=== PATIENT | male | born 1935 | race Caucasian/White ===

== ENCOUNTER → 2017-06-15 | Outpatient (CLI) | payer BC ==
[~2017-06-15] MED LIST: ASPI-435 PO; BRIM0.15 OPB; CHOLTAB3 PO; COEN150C PO; DORZ1SOL6 OPB; FINA5TAB PO; LATA0.009 OPB; MONT1TAB5 PO; ROSU5TAB PO; TAMS0.4C38 PO
--- NOTE | 2017-06-15 09:04 | DIAGNOSTIC IMAGING REPORT ---
ULTRASOUND ABDOMINAL WALL CLINICAL HISTORY: Ventral hernia. COMPARISON STUDY: Abdominal CT dated 05/17/2009. FINDINGS: Real-time grayscale sonography of the abdominal wall is performed at the indicated sites of interest. There is a small and reducible fat-containing ventral hernia identified in the right lower quadrant abdominal wall at the indicated site of interest. The hernia orifice measures 1.8 cm. There is no clear evidence of bowel within the hernia at this time. Survey images of the left lower quadrant at a second site of interest show no evidence of hernia. No hernia could be elicited at this site by having the patient perform the Valsalva maneuver. Survey images of the bladder show layering intraluminal debris. Ureteral jets were seen. IMPRESSION: 1. There is a small and reducible fat-containing hernia in the right lower quadrant abdominal wall at the indicated site of interest. No bowel was seen in the hernia sac. 2. There is no evidence of herniated the left lower quadrant abdominal wall at a second site of interest. 3. Layering intraluminal debris is noted in the bladder. Correlation with urinalysis will be required. Electronically signed by: Ellis Lucero M.D. 06/15/2017 9:03 AM Dictated Date/Time: 06/15/2017 9:00 AM
== END | disposition home or self-care (01) ==
LOC: C.ULTR 08:22
PROVIDERS: ATTEND Family Medicine
DX: K44.9 Diaphragmatic hernia without obstruction or gangrene (principal)

== ENCOUNTER 2022-10-26 07:41 | Inpatient (IN) ==
--- NOTE | 2022-10-26 08:15 | Emergency Department Note ---
History of Present Illness General Chief complaint: Chest Pain Stated complaint: POSSIBLE HEART ATTACK Time Seen by Provider: 10/26/22 07:54 Source: patient, family ( who is at the bedside), RN notes reviewed and old records reviewed Mode of arrival: ambulatory Limitations: no limitations History of Present Illness Maximum Pain Intensity: 6 This patient is a 87-year-old male who woke up at 6:00 in the morning with some central abdominal pain. He says he tends to get abdominal pain that sharp from gas he had some this yesterday but today was worse and different he said it was more generalized. He then said it started develop developing to his chest and he points to the left upper quadrant/left lower chest. No shortness of breath no nausea vomiting he felt like he had a fever this morning. He had a recent UTI he does self cath himself as he has a history of having bladder emptying problems. His urinary symptoms are gotten better . he finished antibiotics. No dysuria or hematuria and has had no cough. No trauma or injury no lower extremity pain or swelling. He did recently travel by plane back from [place]. He did have a large bowel movement prior to leaving the house and is feeling somewhat better after that. He tried nitro with no relief. He has bowel movement was normal without blood or melena it was not soft. He has had no fall or trauma. he is on no blood thinners Home Medications Medication Instructions Recorded Confirmed Type brimonidine 0.15 % eye drops 1 drp OPB BID 12/04/18 06/14/22 History (Alphagan P) coQ10 (ubiquinol) 100 mg capsule 100 mg PO QAM 12/04/18 06/14/22 History dorzolamide 22.3 mg-timolol 6.8 1 drp OPB BID 12/04/18 06/14/22 History mg/mL eye drops (Cosopt) finasteride 5 mg tablet (Proscar) 5 mg PO QAM 12/04/18 06/14/22 History latanoprost 0.005 % eye drops 1 drp OPB HS 12/04/18 06/14/22 History (Xalatan) rosuvastatin 5 mg tablet (Crestor) 5 mg PO HS 12/04/18 06/14/22 History tamsulosin 0.4 mg capsule (Flomax) 0.8 mg PO HS 12/04/18 06/14/22 History nitroglycerin 0.4 mg sublingual 0.4 mg sublingual Q5M PRN Chest 06/23/19 06/14/22 History tablet Pain #1 tab cholecalciferol (vitamin D3) 25 2,000 unit PO QAM 05/19/21 06/14/22 History mcg (1,000 unit) tablet (Vitamin D3) ketoconazole 2 % shampoo 1 applic topical .COMPLEX #120 mL 06/14/22 06/14/22 Rx aspirin 81 mg tablet,delayed 81 mg PO DAILY 10/26/22 10/26/22 History release Allergies Allergy/AdvReac Type Severity Reaction Status Date / Time ciprofloxacin Allergy Severe tendon pain Verified 06/14/22 14:31 erythromycin base AdvReac Intermediate A FIB Verified 06/14/22 14:31 Eeslikc-ZUU-GiN Reductase AdvReac Mild MUSCLE PAIN Verified 06/14/22 14:31 Inhibitor [Yxboxyp-Ebs-Smo Reductase Inhibitor] prednisone AdvReac Unknown Unknown Verified 06/14/22 14:31 Past Med/Surg History Medical History (Updated 10/26/22 @ 14:58 by Rl Julien MD) Atrial fibrillation 2007 AFTER BEING TX FOR PNX (TOOK ERYTHROMYCIN) NO PROBLEMS SINCE BPH (benign prostatic hyperplasia) CAD (coronary artery disease) Cancer SCC SKIN CANCER BLADDER CANCER (SCRAPED OFF) Cystic kidney disease Diverticular disease GERD (gastroesophageal reflux disease) Glaucoma History of SCC (squamous cell carcinoma) of skin Hyperlipidemia ON MEDICATION Lesion of pancreas BEING MONITORED PR, acute, non ST segment elevation (08/06/13) Moderate aortic stenosis Myocardial Infarction [address] CATH BID Surgical History H/O eye surgery RT EYE FOR GLAUCOMA History of adenoidectomy History of appendectomy History of cardiac cath "A COUPLE OF CATH'S" (LAST ONE 2012) NO STENTS History of cholecystectomy History of colonoscopy History of coronary artery bypass graft 2 VESSELS 2007 History of cystoscopy History of hernia repair History of tonsillectomy History of tooth extraction Family History Sister Family hx of colon cancer Melanoma Breast cancer Mother Coronary heart disease Social History Smoking Status: Former smoker Tobacco Type: Cigarettes Second Hand Exposure: No; Hx Alcohol Use: Yes Alcohol type: beer, wine and hard liquor Hx Substance Use: No Preferred Language: Swedish Communication Ability: Effective Oracle Developer Required: No Beliefs That Will Affect Care: None Current Living Situation: Spouse Feels Safe at Home: Yes Assistive Devices: Glasses Review of Systems A total of 10 systems reviewed and were otherwise negative Physical Exam Vital Signs Vital Signs - 24 hr 10/26/22 07:44 10/26/22 08:18 10/26/22 07:58 Temperature 36.2 C L Temperature Source Temporal Artery Scan Pulse Rate 74 51 L Pulse Rate [Apical] 55 L Pulse Rate from SpO2 Sensor 49 L Pulse Rhythm [Apical] Regular Respiratory Rate 20 16 16 Respiratory Effort / Characteristics Non-Labored Non-Labored Spontaneous Respiratory Depth Normal Normal Blood Pressure 136/75 Blood Pressure [Left Arm] 110/65 Blood Pressure Mean 95 Blood Pressure Mean [Left Arm] 80 Pulse Oximetry 95 97 95 Oxygen Delivery Method Room Air Room Air Sepsis Recent Fever Within 48 Hours No Sepsis New/Unexplained Change in Mental Status N/A Sepsis Action Taken by Nursing No Action Required 10/26/22 08:00 10/26/22 08:00 10/26/22 08:15 Temperature Temperature Source Pulse Rate 46 L 45 L Pulse Rate [Apical] Pulse Rate from SpO2 Sensor 50 L 46 L Pulse Rhythm [Apical] Respiratory Rate 13 19 Respiratory Effort / Characteristics Respiratory Depth Blood Pressure 143/74 H Blood Pressure [Left Arm] Blood Pressure Mean 97 Blood Pressure Mean [Left Arm] Pulse Oximetry 95 96 Oxygen Delivery Method Sepsis Recent Fever Within 48 Hours Sepsis New/Unexplained Change in Mental Status Sepsis Action Taken by Nursing 10/26/22 08:15 10/26/22 08:30 10/26/22 08:30 Temperature Temperature Source Pulse Rate 42 L Pulse Rate [Apical] Pulse Rate from SpO2 Sensor 43 L Pulse Rhythm [Apical] Respiratory Rate 19 Respiratory Effort / Characteristics Respiratory Depth Blood Pressure 154/69 H 152/67 H Blood Pressure [Left Arm] Blood Pressure Mean 97 95 Blood Pressure Mean [Left Arm] Pulse Oximetry 94 Oxygen Delivery Method Sepsis Recent Fever Within 48 Hours Sepsis New/Unexplained Change in Mental Status Sepsis Action Taken by Nursing 10/26/22 08:45 10/26/22 08:45 10/26/22 09:00 Temperature Temperature Source Pulse Rate 42 L Pulse Rate [Apical] Pulse Rate from SpO2 Sensor 42 L Pulse Rhythm [Apical] Respiratory Rate 20 Respiratory Effort / Characteristics Respiratory Depth Blood Pressure 153/67 H 144/71 H Blood Pressure [Left Arm] Blood Pressure Mean 95 95 Blood Pressure Mean [Left Arm] Pulse Oximetry 95 Oxygen Delivery Method Sepsis Recent Fever Within 48 Hours Sepsis New/Unexplained Change in Mental Status Sepsis Action Taken by Nursing 10/26/22 09:00 10/26/22 09:15 10/26/22 09:15 Temperature Temperature Source Pulse Rate 41 L 44 L Pulse Rate [Apical] Pulse Rate from SpO2 Sensor 42 L 42 L Pulse Rhythm [Apical] Respiratory Rate 18 19 Respiratory Effort / Characteristics Respiratory Depth Blood Pressure 163/67 H Blood Pressure [Left Arm] Blood Pressure Mean 99 Blood Pressure Mean [Left Arm] Pulse Oximetry 95 96 Oxygen Delivery Method Sepsis Recent Fever Within 48 Hours Sepsis New/Unexplained Change in Mental Status Sepsis Action Taken by Nursing 10/26/22 09:30 10/26/22 09:30 10/26/22 10:03 Temperature Temperature Source Pulse Rate 47 L Pulse Rate [Apical] Pulse Rate from SpO2 Sensor 47 L 59 L Pulse Rhythm [Apical] Respiratory Rate 19 Respiratory Effort / Characteristics Respiratory Depth Blood Pressure 168/66 H Blood Pressure [Left Arm] Blood Pressure Mean 100 Blood Pressure Mean [Left Arm] Pulse Oximetry 96 96 Oxygen Delivery Method Sepsis Recent Fever Within 48 Hours Sepsis New/Unexplained Change in Mental Status Sepsis Action Taken by Nursing 10/26/22 10:05 10/26/22 10:05 10/26/22 10:15 Temperature Temperature Source Pulse Rate 46 L Pulse Rate [Apical] Pulse Rate from SpO2 Sensor 46 L Pulse Rhythm [Apical] Respiratory Rate 17 Respiratory Effort / Characteristics Respiratory Depth Blood Pressure 180/68 H 165/70 H Blood Pressure [Left Arm] Blood Pressure Mean 105 101 Blood Pressure Mean [Left Arm] Pulse Oximetry 96 Oxygen Delivery Method Sepsis Recent Fever Within 48 Hours Sepsis New/Unexplained Change in Mental Status Sepsis Action Taken by Nursing 10/26/22 10:15 10/26/22 10:30 10/26/22 10:30 Temperature Temperature Source Pulse Rate 40 L 41 L Pulse Rate [Apical] Pulse Rate from SpO2 Sensor 41 L 41 L Pulse Rhythm [Apical] Respiratory Rate 22 18 Respiratory Effort / Characteristics Respiratory Depth Blood Pressure 180/69 H Blood Pressure [Left Arm] Blood Pressure Mean 106 Blood Pressure Mean [Left Arm] Pulse Oximetry 96 97 Oxygen Delivery Method Sepsis Recent Fever Within 48 Hours Sepsis New/Unexplained Change in Mental Status Sepsis Action Taken by Nursing 10/26/22 11:00 10/26/22 11:00 10/26/22 11:15 Temperature Temperature Source Pulse Rate 42 L 54 L Pulse Rate [Apical] Pulse Rate from SpO2 Sensor 42 L 48 L Pulse Rhythm [Apical] Respiratory Rate 20 18 Respiratory Effort / Characteristics Respiratory Depth Blood Pressure 161/73 H Blood Pressure [Left Arm] Blood Pressure Mean 102 Blood Pressure Mean [Left Arm] Pulse Oximetry 96 95 Oxygen Delivery Method Sepsis Recent Fever Within 48 Hours Sepsis New/Unexplained Change in Mental Status Sepsis Action Taken by Nursing 10/26/22 11:15 10/26/22 11:30 10/26/22 11:30 Temperature Temperature Source Pulse Rate 53 L Pulse Rate [Apical] Pulse Rate from SpO2 Sensor 54 L Pulse Rhythm [Apical] Respiratory Rate 14 Respiratory Effort / Characteristics Respiratory Depth Blood Pressure 167/69 H 158/69 H Blood Pressure [Left Arm] Blood Pressure Mean 101 98 Blood Pressure Mean [Left Arm] Pulse Oximetry 95 Oxygen Delivery Method Sepsis Recent Fever Within 48 Hours Sepsis New/Unexplained Change in Mental Status Sepsis Action Taken by Nursing 10/26/22 12:00 10/26/22 12:00 10/26/22 12:30 Temperature Temperature Source Pulse Rate 56 L Pulse Rate [Apical] Pulse Rate from SpO2 Sensor 54 L Pulse Rhythm [Apical] Respiratory Rate 20 Respiratory Effort / Characteristics Respiratory Depth Blood Pressure 149/72 H 148/78 H Blood Pressure [Left Arm] Blood Pressure Mean 97 101 Blood Pressure Mean [Left Arm] Pulse Oximetry 96 Oxygen Delivery Method Sepsis Recent Fever Within 48 Hours Sepsis New/Unexplained Change in Mental Status Sepsis Action Taken by Nursing 10/26/22 12:30 Temperature Temperature Source Pulse Rate 65 Pulse Rate [Apical] Pulse Rate from SpO2 Sensor 62 Pulse Rhythm [Apical] Respiratory Rate 16 Respiratory Effort / Characteristics Respiratory Depth Blood Pressure Blood Pressure [Left Arm] Blood Pressure Mean Blood Pressure Mean [Left Arm] Pulse Oximetry 96 Oxygen Delivery Method Sepsis Recent Fever Within 48 Hours Sepsis New/Unexplained Change in Mental Status Sepsis Action Taken by Nursing General: Well developed well nourished older male who in no acute distress, breathing comfortably on room air. Normal speech HEENT: Normal cephalic atraumatic. Pupils are equal round and reactive to light. Extraocular movements are intact. Oropharynx is pink with moist mucous membranes. No swelling of the mouth lips or tongue. Neck: Supple with a midline trachea. No meningeal signs or stiffness, no JVD or bruits. No Stridor. Chest: Clear to auscultation bilaterally. No wheezes or rhonchi. No increased work of breathing. Heart: bradycardic in the 50s but and rhythm without murmurs or gallops. His tells me he is always bradycardic Abdomen: Soft nontender, nondistended without rebound guarding or rigidity. He does have some fullness in the right side of the abdomen but not focally tender. There is no redness or warmth Extremities: No cyanosis clubbing or edema. No calf tenderness or assymetry Spine/Back. Non tender to palpation. No CVA tenderness Skin: Good turgor without rashes. Neurologic exam: Cranial nerves two through 12 are intact. Motor and sensation are intact and symmetrical throughout. Procedures Free Text Procedures ED observation- The patient was placed in observation status at 759 for chest pain/abdominal pain.During the time in observation, the patient was frequently reassessed and received EKG x2 which were nonischemic and no change compared to the first. He also had 2 negative troponins. The second was slightly larger than the first.. On Final reassessment the patient did not have any signs of acute cardiac event however was found to have a small bowel obstruction and hernia that was a addressed by consultation with medicine and surgery and the patient will be admitted to the hospital at this time. A total observation time of 4 hours and 57-minutes. Course Administered Medications Sodium Chloride (Nss) 500 mls @ 125 mls/hr IV .Q4H HUGH Stop: 11/25/22 11:14 Last Admin: 10/26/22 11:33 Dose: 125 mls/hr Documented By: SHARI Discontinued Medications Sodium Chloride (Nss 1000ml) 500 mls @ 999 mls/hr IV .Q31M ONE Stop: 10/26/22 11:43 Last Infusion: 10/26/22 12:10 Dose: 0 mls/hr Documented By: Admin: 10/26/22 11:33 Dose: 999 mls/hr Documented By: SHARI Ceftriaxone Sodium (Rocephin) 2,000 mg in 70 mls @ 100 mls/hr IV ONE STA; Protocol Stop: 10/26/22 14:05 Last Infusion: 10/26/22 14:15 Dose: 0 mls/hr Documented By: RSAdela Admin: 10/26/22 13:34 Dose: 100 mls/hr Documented By: Ioversol (Optiray 320 500ml) 112 ml IV ONCE ONE Stop: 10/26/22 09:53 Last Admin: 10/26/22 09:51 Dose: 112 ml Documented By: FAM Medical Decision Making Differential Diagnosis Acute coronary syndrome, arrhythmia, intra-abdominal process, infection, bowel obstruction, aneurysm, UTI, electrolyte or metabolic abnormality, Medical Records Attestation: I reviewed the patient's medical records. Home Medications Current Medication List: was personally reviewed by me Laboratory Data Attestation: I reviewed the patient's lab results. 10/26/22 07:59 10/26/22 07:59 Lab Results 10/26/22 10/26/22 10/26/22 Range/Units 07:59 07:59 07:59 WBC 13.58 H (4.8-10.8) K/ul RBC 4.47 L (4.70-6.10) M/uL Hgb 14.1 (14.0-18.0) g/dl Hct 41.9 L (42.0-52.0) % MCV 93.7 (80.0-100.0) fL MCH 31.5 (25.0-34.0) pg MCHC 33.7 (32.0-36.0) g/dL RDW Std Deviation 44.9 (36.4-46.3) fL RDW Coeff of Alon 13.2 (11.5-14.5) % Plt Count 166 (130-400) K/uL MPV 10.4 (9.4-12.4) fL Immature Gran % (Auto) 0.6 % Neut % (Auto) 83.7 % Lymph % (Auto) 5.4 % [place] % (Auto) 8.2 % Eos % (Auto) 1.7 % Baso % (Auto) 0.4 % Neut # (Auto) 11.36 H (1.40-6.50) K/uL Lymph # (Auto) 0.73 L (1.2-3.4) K/uL [place] # (Auto) 1.12 H (0.11-0.59) K/uL Eos # (Auto) 0.23 (0-0.50) K/uL Baso # (Auto) 0.06 (0-0.2) K/uL Immature Gran # (Auto) 0.08 (0.01-0.20) K/uL PT 11.2 (9.0-12.0) Seconds INR 1.1 (0.9-1.1) APTT 23.7 (21.0-31.0) Seconds PTT Ratio 0.9 Sodium 141 (136-145) mmol/L Potassium 4.0 (3.5-5.1) mmol/L Chloride 107 (98-107) mmol/L Carbon Dioxide 31 (21-32) mmol/L Anion Gap 3 (3-11) BUN 22 (6-23) mg/dl Creatinine 1.04 (0.6-1.4) mg/dl Est Cr Clr Drug Dosing Not Reportable Est GFR ( Amer) 73.4 ml/min Est GFR (Non-Af Amer) 63.4 ml/min BUN/Creatinine Ratio 21.2 H (10-20) Glucose 136 H (70-99(Fasting)) mg/dl Calcium 10.3 H (8.5-10.1) mg/dl Total Bilirubin 1.1 H (0.2-1.0) mg/dl AST 12 L (13-39) U/L ALT 11 (7-52) U/L Alkaline Phosphatase 64 (34-104) U/L Troponin I High Sens 13.4 (0-20) pg/ml Total Protein 6.4 (6.0-8.3) gm/dl Albumin 3.8 (3.4-5.0) gm/dl Globulin 2.6 (2.5-4.0) gm/dl Albumin/Globulin Ratio 1.5 (0.9-2) Lipase 13 (11-82) U/L Urine Color Urine Appearance (Clear) Urine pH (4.5-7.5) Ur Specific [place] (1.000-1.030) Urine Protein (Negative) Urine Glucose (UA) (Negative) Urine Ketones (Negative) Urine Blood (Negative) Urine Nitrite (Negative) Urine Bilirubin (Negative) Urine Urobilinogen (Negative) Ur Leukocyte Esterase (Negative) Urine WBC (Auto) (0-5) /hpf Urine RBC (Auto) (0-4) /hpf U Hyaline Cast (Auto) (0-5) /lpf U Epithel Cells (Auto) (0-5) /lpf Urine Bacteria (Auto) (Negative) Urine Yeast SARS-CoV-2 (PCR) (Negative) Influenza Type A (PCR) (Neg) Influenza Type B (PCR) (Neg) RSV (RT-PCR) (Neg) 10/26/22 10/26/22 10/26/22 Range/Units 08:15 10:42 Unknown WBC (4.8-10.8) K/ul RBC (4.70-6.10) M/uL Hgb (14.0-18.0) g/dl Hct (42.0-52.0) % MCV (80.0-100.0) fL MCH (25.0-34.0) pg MCHC (32.0-36.0) g/dL RDW Std Deviation (36.4-46.3) fL RDW Coeff of Alon (11.5-14.5) % Plt Count (130-400) K/uL MPV (9.4-12.4) fL Immature Gran % (Auto) % Neut % (Auto) % Lymph % (Auto) % [place] % (Auto) % Eos % (Auto) % Baso % (Auto) % Neut # (Auto) (1.40-6.50) K/uL Lymph # (Auto) (1.2-3.4) K/uL [place] # (Auto) (0.11-0.59) K/uL Eos # (Auto) (0-0.50) K/uL Baso # (Auto) (0-0.2) K/uL Immature Gran # (Auto) (0.01-0.20) K/uL PT (9.0-12.0) Seconds INR (0.9-1.1) APTT (21.0-31.0) Seconds PTT Ratio Sodium (136-145) mmol/L Potassium (3.5-5.1) mmol/L Chloride (98-107) mmol/L Carbon Dioxide (21-32) mmol/L Anion Gap (3-11) BUN (6-23) mg/dl Creatinine (0.6-1.4) mg/dl Est Cr Clr Drug Dosing Est GFR ( Amer) ml/min Est GFR (Non-Af Amer) ml/min BUN/Creatinine Ratio (10-20) Glucose (70-99(Fasting)) mg/dl Calcium (8.5-10.1) mg/dl Total Bilirubin (0.2-1.0) mg/dl AST (13-39) U/L ALT (7-52) U/L Alkaline Phosphatase (34-104) U/L Troponin I High Sens 18.7 D (0-20) pg/ml Total Protein (6.0-8.3) gm/dl Albumin (3.4-5.0) gm/dl Globulin (2.5-4.0) gm/dl Albumin/Globulin Ratio (0.9-2) Lipase (11-82) U/L Urine Color Yellow Urine Appearance Turbid A (Clear) Urine pH 6.5 (4.5-7.5) Ur Specific [place] 1.026 (1.000-1.030) Urine Protein 1+ H (Negative) Urine Glucose (UA) Negative (Negative) Urine Ketones Negative (Negative) Urine Blood 2+ H (Negative) Urine Nitrite Negative (Negative) Urine Bilirubin Negative (Negative) Urine Urobilinogen Negative (Negative) Ur Leukocyte Esterase 3+ H (Negative) Urine WBC (Auto) >30 H (0-5) /hpf Urine RBC (Auto) 5-10 H (0-4) /hpf U Hyaline Cast (Auto) 1-5 (0-5) /lpf U Epithel Cells (Auto) >30 H (0-5) /lpf Urine Bacteria (Auto) 4+ H (Negative) Urine Yeast Not Reportable SARS-CoV-2 (PCR) NEGATIVE (Negative) Influenza Type A (PCR) Negative (Neg) Influenza Type B (PCR) Negative (Neg) RSV (RT-PCR) Negative (Neg) Imaging Data Attestation: I personally reviewed and interpreted this imaging study as follows: My Impression: CT of the chest and abdomen. Upon my interpretation, I do not see any free air or pneumothorax. There is a small bowel obstruction. Radiologist's Impression: Abdomen/Pelvis CT 10/26/22 08:05 CT SCAN OF THE ABDOMEN AND PELVIS WITH IV CONTRAST CLINICAL HISTORY: Generalized abdominal pain. COMPARISON STUDY: Abdominal CT dated 06/19/2018. TECHNIQUE: Following the IV administration of 112 cc of Optiray 320, CT scan of the abdomen and pelvis is performed from the lung bases to the proximal femora. Images are reviewed in the axial, sagittal, and coronal planes. IV contrast was administered without complication. A dose lowering technique was utilized adher ing to the principles of ALARA. FINDINGS: Lung bases: The heart is enlarged and without pericardial effusion. The coronary arteries and aortic valve leaflets are densely calcified. There are small pleural effusions with dependent atelectasis. Foci of parenchymal scarring are noted at both lung bases. There is a small hiatal hernia. Liver: The contrast-enhanced liver is normal in size, contour, and attenuation. There is no intrahepatic biliary ductal dilatation. The hepatic veins and portal veins are patent. Gallbladder: Surgically absent and clips in the gallbladder fossa. Spleen: Normal in size and attenuation. Pancreas: A 1.8 cm simple cystic lesion in the pancreatic head seen on image #171 is unchanged from previous pelvis likely represents an IPMN versus mucinous cystic neoplasm. The pancreatic duct is normal in caliber. The gland is mildly atrophic and otherwise grossly unremarkable. Adrenal glands: Unremarkable. Kidneys: The contrast enhanced kidneys demonstrate mild cortical atrophy and are without hydronephrosis. The kidneys enhance symmetrically. Simple and complex b ilateral renal cysts measure up to 4 cm. These were also seen previously. Abdominal vasculature: There is advanced atherosclerotic calcification and ectasia of the abdominal aorta. Bowel: There are bilateral spigelian hernias in the ventral pelvis which contain ascitic fluid. The spigelian hernia on the right also contains the distal/terminal ileum. This is best seen on axial image #334. This hernia is incarcerated and causes upstream small bowel obstruction. The distal ileum is distended and fecalized, with loops measuring up to 3.3 cm diameter. There is interloop fluid. No focally thick-walled bowel loops identified. There is no pneumatosis intestinalis or portal venous gas. The colon is decompressed. The appendix is not visualized. There are scattered colonic diverticula without CT evidence of acute diverticulitis. Peritoneum: No depression of free air is seen. There is a small volume of abdominopelvic ascites. Lymphadenopathy: None. Pelvic viscera: The prostate gland is markedly enlarged and heterogeneous noting median lobe hypertrophy. The bladder is markedly distended. The wall is thickened/trabeculated indicating chronic outlet obstruction. There are small bilateral inguinal hernias. The hernia on the left contains fluid. Skeletal structures: The skeletal structures are osteopenic. There is moderate lumbosacral spondylosis. No lytic or blastic lesions are seen. IMPRESSION: 1. 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 2. No focally thick-walled bowel loops identified. There is no intraperitoneal free air, pneumatosis intestinalis, or portal venous gas. 3. There is interval fluid and a small volume of abdominopelvic ascites. 4. Cardiomegaly and small pleural effusions. 5. Marked bladder distention with prostatomegaly and evidence of chronic outlet obstruction. 6. Additional findings as above. ACT 112: Negative or not required by law. Electronically signed by: Ellis Lucero M.D. 10/26/2022 10:55 AM Chest CTA 10/26/22 08:06 CT ANGIOGRAM OF THE CHEST CLINICAL HISTORY: Atypical chest pain. COMPARISON STUDY: Chest x-ray dated 10/26/2022. Chest CT dated 1229 and 12. TECHNIQUE: Following the IV administration of 112 cc of Optiray 320, CT angiogram of the chest was performed from the upper abdomen to the thoracic inlet utilizing the pulmonary embolus protocol. Images are reviewed in the axial, sagittal, and coronal planes. 3-D MIPS images are created and assessed. I V contrast was administered without complication. A dose lowering technique was utilized adhering to the principles of ALARA. CT DOSE: 1035.46 mGycm FINDINGS: Thyroid: Imaged portions of the thyroid gland are normal in size and attenuation. Thoracic aorta: There is atherosclerotic calcification of the thoracic aorta, which is normal in caliber and demonstrates standard 3-vessel arch anatomy. No dissection is seen. Pulmonary vasculature: The main pulmonary arteries are dilated indicating pulmonary artery hypertension. There are no filling defects identified in main, lobar, or segmental pulmonary branches to suggest pulmonary embolus. Heart: The patient is status post midline sternotomy. The heart is enlarged and without pericardial effusion. The coronary arteries are densely calcified. Lungs and pleural spaces: There are small pleural effusions, right larger than left with dependent atelectasis. The trachea and central airways are clear. There is no airspace consolidation typical for pneumonia. There is a 6 mm irregular right apical nodule suggested on image #272. Mediastinum: There is no mediastinal lymphadenopathy. [place]: Clear. Axillae: There is no axillary lymphadenopathy. Upper abdomen: There is a small volume of upper abdominal ascites. Partially visualized upper abdominal viscera is otherwise grossly unremarkable. Skeletal structures: The skeletal structures are osteopenic. Degenerative change is noted in the thoracic spine and shoulders. No lytic or blastic bony lesions are seen. IMPRESSION: 1. There is no evidence of pulmonary embolus in the main, lobar, or segmental pulmonary arteries. 2. Cardiomegaly with evidence of pulmonary artery hypertension. 3. Small pleural effusions. 4. There is no airspace consolidation typical for pneumonia. 5. Upper abdominal ascites. 6. A 6 mm nodule is questioned at the right apex. This was not seen in 2012. A 3-4 and follow-up chest CT is recommended for reassessment. 7. Additional findings as above. ACT 112: Negative or not required by law. Electronically signed by: Ellis Lucero M.D. 10/26/2022 10:05 AM Chest X-Ray 10/26/22 08:06 SINGLE VIEW CHEST CLINICAL HISTORY: Atypical chest pain FINDINGS: 2 AP, portable, upright chest radiographs are compared to study dated 11/12/2019 and correlated with chest CT dated 09/20/2012. The patient is status post midline sternotomy. The heart is enlarged noting atherosclerotic calcification of the thoracic aorta. The pulmonary vasculature is noncongested. Chronic interstitial thickening is similar previous. There is bibasilar scarring/atelectasis. No airspace consolidation or large pleural effusion is identified. No pneumothorax is seen. The skeletal structures are osteopenic. The bony thorax is grossly intact. IMPRESSION: Cardiomegaly with no acute cardiopulmonary abnormality identified. ACT 112: Negative or not required by law. Electronically signed by: Ellis Lucero M.D. 10/26/2022 8:23 AM ECG Data Attestation: I personally reviewed and interpreted this ECG as follows: Indication: + abdominal pain, + bradycardia and + chest pain Rate (beats per minute): 44 Rhythm: + sinus bradycardia ECG Intervals/blocks: + Normal QRS, + Normal QT and + Normal PA ECG [place]: + Left axis deviation ECG ST segments: + Normal ST segments ECG Findings: + LVH; no PACs or no PVCs Comparison ECG Date: from (09/11/20) Change: no significant change MDM Narrative This patient is a 87-year-old male who comes in after having abdominal pain. It started to radiate towards his chest so he got concerned. He was placed on a security monitor room C6 is initial EKG shows sinus bradycardia which is baseline for him when comparing it to his old EKG there is no acute ischemic changes seen that are new. I did a full cardiac work-up including cardiac biomarkers we also scanned him with both his chest and abdomen. I wonder make sure he did not have a PE given his recent travel and also with his Abdominal pain I want a make sure there is no acute intra-abdominal process going on such as an aneurysm or bowel obstruction. He was reassessed frequently. Chest x-ray was unremarkable and does not show anything to suggest pneumonia or any free air or abdominal process. His white count is mildly elevated at 13 he has no significant anemia. His troponin and was unremarkable EKG x2 was unremarkable. He was observed in the ED for chest pain. His COVID test was negative. CT angio shows no evidence of PE. CT of the abdomen shows small bowel obstruction and a spigelian hernia that appears to be incarcerated. The patient appears comfortable with this however he was kept n.p.o. he was given IV fluids I did consult Dr. Farnsworth from surgery and he will see the patient in the hospital he did want internal medicine to admit the patient so I did contact Dr. Shook and he explained the case and he saw the patient ER will be admitted him for these measures Continuous cardiac monitoring: Orders placed in EMR for continuous security monitor. Pulm interpretation patient noted to be in sinus bradycardia with a rate of 50. Impression & Plan SBO (small bowel obstruction), Bradycardia, sinus, Chest pain, Abdominal pain, Spigelian hernia Discharge Plan Visit Data Chief Complaint: Chest Pain Stated Complaint: POSSIBLE HEART ATTACK ED Provider: Rl Julien Discharge Problem: SBO (small bowel obstruction), Bradycardia, sinus, Chest pain, Abdominal pain, Spigelian hernia Forms Stand Alone Forms: My [facility] Prescriptions Prescriptions: No Action nitroglycerin 0.4 mg tablet, sublingual 0.4 mg SL Q5M PRN (Reason: Chest Pain) Qty: 1 Rx Instructions: NEEDED FOR CHEST PAIN : ONE TABLET UNDER THE TONGUE EVERY 5 MINUTES UP TO 3 DOSES. ketoconazole 2 % shampoo 1 applic topical .COMPLEX Qty: 120 2RF Rx Instructions: Wash scalp, face and chest 2-3 times weekly. Let sit for 3-5 minutes prior to rinsing.; latanoprost [Xalatan] 0.005 % Drops 1 drp OPB HS aspirin [Aspir-Low] 81 mg Tablet,Delayed Release (Dr/Ec) 81 mg PO Q2D tamsulosin [Flomax] 0.4 mg Capsule 0.8 mg PO HS Rx Instructions: TWO CAPSULE DOSE dorzolamide-timolol [Cosopt] 22.3-6.8 mg/mL Drops 1 drp OPB BID finasteride [Proscar] 5 mg Tablet 5 mg PO QAM brimonidine [Alphagan P] 0.15 % Drops 1 drp OPB BID rosuvastatin [Crestor] 5 mg Tablet 5 mg PO HS coQ10 (ubiquinol) 100 mg Capsule 100 mg PO QAM cholecalciferol (vitamin D3) [Vitamin D3] 25 mcg (1,000 unit) tablet 2,000 unit PO QAM Referrals Referrals: Yared Landin MD [Primary Care Provider] -
[2022-10-26 08:22] LABS: Basophils # (auto) 0.06 K/uL (0-0.2); Basophils % (auto) 0.4 %; Eosinophils # (auto) 0.23 K/uL (0-0.50); Eosinophils % (auto) 1.7 %; Hematocrit (blood only) 41.9 % (42.0-52.0); Hemoglobin 14.1 g/dl (14.0-18.0); Immature Granulocytes # (auto) 0.08 K/uL (0.01-0.20); Immature Granulocytes % (auto) 0.6 %; Lymphocytes # (auto) 0.73 K/uL (1.2-3.4); Lymphocytes % (auto) 5.4 %; Mean Corpuscular Hemoglobin 31.5 pg (25.0-34.0); Mean Corpuscular Hgb Conc 33.7 g/dL (32.0-36.0); Mean Corpuscular Volume 93.7 fL (80.0-100.0); Mean Platelet Volume 10.4 fL (9.4-12.4); Monocytes # (auto) 1.12 K/uL (0.11-0.59); Monocytes % (auto) 8.2 %; Neutrophils # (auto) 11.36 K/uL (1.40-6.50); Neutrophils % (auto) 83.7 %; Platelet Count 166 K/uL (130-400); RDW Coefficient of Variation 13.2 % (11.5-14.5); RDW Standard Deviation 44.9 fL (36.4-46.3); Red Blood Count 4.47 M/uL (4.70-6.10); White Blood Count 13.58 K/ul (4.8-10.8)
--- NOTE | 2022-10-26 08:25 | XRay Report ---
SINGLE VIEW CHEST CLINICAL HISTORY: Atypical chest pain FINDINGS: 2 AP, portable, upright chest radiographs are compared to study dated 11/12/2019 and correla gwendolyn with chest CT dated 09/20/2012. The patient is status post midline sternotomy. The heart is enlar ged noting atherosclerotic calcification of the thoracic aorta. The pulmonary vasculature is nonconge sted. Chronic interstitial thickening is similar previous. There is bibasilar scarring/atelectasis. N o airspace consolidation or large pleural effusion is identified. No pneumothorax is seen. The skelet al structures are osteopenic. The bony thorax is grossly intact. IMPRESSION: Cardiomegaly with no acute cardiopulmonary abnormality identified. ACT 112: Negative or not required by law. Electronically signed by: Ellis Lucero M.D. 10/26/2022 8:23 AM
[2022-10-26 08:38] LABS: INR 1.1 (0.9-1.1); Partial Thromboplastin Ratio 0.9; Partial Thromboplastin Time 23.7 Seconds (21.0-31.0); Prothrombin Time 11.2 Seconds (9.0-12.0)
[2022-10-26 08:59] LABS: Troponin I High Sensitivity 13.4 pg/ml (0-20)
[2022-10-26 09:06] LABS: Influenza A virus by PCR Negative (Neg); Influenza B virus by PCR Negative (Neg); RSV by PCR Negative (Neg); SARS CoV2 RNA(COVID-19) Ceph NEGATIVE (Negative)
[2022-10-26 09:20] LABS: Albumin Level 3.8 gm/dl (3.4-5.0); Anion Gap 3 (3-11); Bilirubin,Total 1.1 mg/dl (0.2-1.0); Calcium 10.3 mg/dl (8.5-10.1); Carbon Dioxide 31 mmol/L (21-32); Chloride 107 mmol/L (98-107); Sodium 141 mmol/L (136-145)
[2022-10-26 09:26] LABS: Alanine Aminotransferase 11 U/L (7-52); Albumin Globulin Ratio 1.5 (0.9-2); Alkaline Phosphatase 64 U/L (34-104); Aspartate Aminotransferase 12 U/L (13-39); BUN Creatinine Ratio 21.2 (10-20); Blood Urea Nitrogen 22 mg/dl (6-23); Est GFR (African American) 73.4 ml/min; Est GFR (Non-African American) 63.4 ml/min; Globulin 2.6 gm/dl (2.5-4.0); Glucose 136 mg/dl (70-99(Fasting)); Lipase 13 U/L (11-82); Total Protein 6.4 gm/dl (6.0-8.3)
[2022-10-26] MEDS ORDERED: OPTIRAY 320 500ml IV ONE (09:52)
--- NOTE | 2022-10-26 10:06 | CT Scan Report ---
CT ANGIOGRAM OF THE CHEST CLINICAL HISTORY: Atypical chest pain. COMPARISON STUDY: Chest x-ray dated 10/26/2022. Chest CT dated 1229 and 12. TECHNIQUE: Following the IV administration of 112 cc of Optiray 320, CT angiogram of the chest was pe rformed from the upper abdomen to the thoracic inlet utilizing the pulmonary embolus protocol. Images are reviewed in the axial, sagittal, and coronal planes. 3-D MIPS images are created and assessed. I V contrast was administered without complication. A dose lowering technique was utilized adhering to the principles of ALARA. CT DOSE: 1035.46 mGycm FINDINGS: Thyroid: Imaged portions of the thyroid gland are normal in size and attenuation. Thoracic aorta: There is atherosclerotic calcification of the thoracic aorta, which is normal in lazaro boubacar and demonstrates standard 3-vessel arch anatomy. No dissection is seen. Pulmonary vasculature: The main pulmonary arteries are dilated indicating pulmonary artery hypertensi on. There are no filling defects identified in main, lobar, or segmental pulmonary branches to sugges t pulmonary embolus. Heart: The patient is status post midline sternotomy. The heart is enlarged and without pericardial e ffusion. The coronary arteries are densely calcified. Lungs and pleural spaces: There are small pleural effusions, right larger than left with dependent at electasis. The trachea and central airways are clear. There is no airspace consolidation typical for pneumonia. There is a 6 mm irregular right apical nodule suggested on image #272. Mediastinum: There is no mediastinal lymphadenopathy. Kathryn: Clear. Axillae: There is no axillary lymphadenopathy. Upper abdomen: There is a small volume of upper abdominal ascites. Partially visualized upper abdomin al viscera is otherwise grossly unremarkable. Skeletal structures: The skeletal structures are osteopenic. Degenerative change is noted in the thor acic spine and shoulders. No lytic or blastic bony lesions are seen. IMPRESSION: 1. There is no evidence of pulmonary embolus in the main, lobar, or segmental pulmonary arteries. 2. Cardiomegaly with evidence of pulmonary artery hypertension. 3. Small pleural effusions. 4. There is no airspace consolidation typical for pneumonia. 5. Upper abdominal ascites. 6. A 6 mm nodule is questioned at the right apex. This was not seen in 2012. A 3-4 and follow-up ches t CT is recommended for reassessment. 7. Additional findings as above. ACT 112: Negative or not required by law. Electronically signed by: Ellis Lucero M.D. 10/26/2022 10:05 AM
[2022-10-26 10:33] LABS: Appearance Urine Turbid (Clear); Bacteria Urine Automated 4+ (Negative); Bilirubin Urine Negative (Negative); Blood Urine 2+ (Negative); Color Urine Yellow; Epithelial Cell Urine Auto >30 /lpf (0-5); Glucose Urine UA Negative (Negative); Ketones Urine Negative (Negative); Leukocyte Esterase Urine 3+ (Negative); Nitrite Urine Negative (Negative); Protein Urine 1+ (Negative); Specific Gravity Urine 1.026 (1.000-1.030); Urobilinogen Urine Negative (Negative); WBC Urine Automated >30 /hpf (0-5); pH Urine 6.5 (4.5-7.5)
--- NOTE | 2022-10-26 10:56 | CT Scan Report ---
CT SCAN OF THE ABDOMEN AND PELVIS WITH IV CONTRAST CLINICAL HISTORY: Generalized abdominal pain. COMPARISON STUDY: Abdominal CT dated 06/19/2018. TECHNIQUE: Following the IV administration of 112 cc of Optiray 320, CT scan of the abdomen and pelv is is performed from the lung bases to the proximal femora. Images are reviewed in the axial, sagitta l, and coronal planes. IV contrast was administered without complication. A dose lowering technique w as utilized adhering to the principles of ALARA. FINDINGS: Lung bases: The heart is enlarged and without pericardial effusion. The coronary arteries and aortic valve leaflets are densely calcified. There are small pleural effusions with dependent atelectasis. F oci of parenchymal scarring are noted at both lung bases. There is a small hiatal hernia. Liver: The contrast-enhanced liver is normal in size, contour, and attenuation. There is no intrahepa tic biliary ductal dilatation. The hepatic veins and portal veins are patent. Gallbladder: Surgically absent and clips in the gallbladder fossa. Spleen: Normal in size and attenuation. Pancreas: A 1.8 cm simple cystic lesion in the pancreatic head seen on image #171 is unchanged from p revious pelvis likely represents an IPMN versus mucinous cystic neoplasm. The pancreatic duct is norm al in caliber. The gland is mildly atrophic and otherwise grossly unremarkable. Adrenal glands: Unremarkable. Kidneys: The contrast enhanced kidneys demonstrate mild cortical atrophy and are without hydronephros is. The kidneys enhance symmetrically. Simple and complex bilateral renal cysts measure up to 4 cm. T hese were also seen previously. Abdominal vasculature: There is advanced atherosclerotic calcification and ectasia of the abdominal a mark. Bowel: There are bilateral spigelian hernias in the ventral pelvis which contain ascitic fluid. The s pigelian hernia on the right also contains the distal/terminal ileum. This is best seen on axial imag e #334. This hernia is incarcerated and causes upstream small bowel obstruction. The distal ileum is distended and fecalized, with loops measuring up to 3.3 cm diameter. There is interloop fluid. No foc ally thick-walled bowel loops identified. There is no pneumatosis intestinalis or portal venous gas. The colon is decompressed. The appendix is not visualized. There are scattered colonic diverticula w ithout CT evidence of acute diverticulitis. Peritoneum: No depression of free air is seen. There is a small volume of abdominopelvic ascites. Lymphadenopathy: None. Pelvic viscera: The prostate gland is markedly enlarged and heterogeneous noting median lobe hypertro phy. The bladder is markedly distended. The wall is thickened/trabeculated indicating chronic outlet obstruction. There are small bilateral inguinal hernias. The hernia on the left contains fluid. Skeletal structures: The skeletal structures are osteopenic. There is moderate lumbosacral spondylosi s. No lytic or blastic lesions are seen. IMPRESSION: 1. 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 2. No focally thick-walled bowel loops identified. There is no intraperitoneal free air, pneumatosis intestinalis, or portal venous gas. 3. There is interval fluid and a small volume of abdominopelvic ascites. 4. Cardiomegaly and small pleural effusions. 5. Marked bladder distention with prostatomegaly and evidence of chronic outlet obstruction. 6. Additional findings as above. ACT 112: Negative or not required by law. Electronically signed by: Ellis Lucero M.D. 10/26/2022 10:55 AM
[2022-10-26] MEDS ORDERED: SODIUM CHLORIDE 0.9% 1000ML 500 ML IV ONE (11:13)
[2022-10-26] MEDS ORDERED: SODIUM CHLORIDE 0.9% 500 ML IV SCH (11:15)
--- NOTE | 2022-10-26 12:12 | History & Physical Report ---
Date of Service October 26, 2022 Assessment & Plan (1) Small bowel obstruction: Plan: SBO 2/2 Incarcerated hernia - Surgery - CT-A/P: 1. 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 2. No focally thick-walled bowel loops identified. There is no intraperitoneal free air, pneumatosis intestinalis, or portal venous gas. 3. There is interval fluid and a small volume of abdominopelvic ascites. 4. Cardiomegaly and small pleural effusions. 5. Marked bladder distention with prostatomegaly and evidence of chronic outlet obstruction. 6. Additional findings as above. Patient did have a large brown bowel movement this morning, has had no bleeding and has had reduced but is still passing flatus. Unclear chronicity, hernia is incarcerated but not strangulated. Surgery consulted and will follow, patient prefers conservative management which is reasonable at this time N.p.o. IV FM 80 cc/h while n.p.o., no overt fluid overload (2) Urinary tract infection: Plan: UTI, hx LUTS - Continue proscar - Cath PRN - Flomax continued - UA infected appearing, UC pending. +Rocephin (3) Bradycardia, sinus: Plan: Chronic Bradycardia -Holter 05/2022 with sinus bradycardia and appropriate chronotropic response Hemodynamically stable on admission We will continue on telemetry, no indication for pacing/atropine at this time On provider reassessment heart rate is normal in the 60s. Patient very concerned about heart rate decreasing to 30s/40s, although does note that he has not had symptoms/lightheadedness/syncope events blood pressure has been stable with this. Does request that it be discussed with his cardiolo gist Dr. Barraza, who they have left a call for at the office (4) CAD (coronary artery disease): Plan: CAD s/p CABG, no stents. Hx MONCADA --> LAD >10 yrs ago No exertional chest pain, has had gradually decreasing stamina at prior follow-ups Last echo:06/14/2022: Normal biventricular systolic function. Mild LAD. Mild aortic stenosis. Mild to stacey regurg. Mild to moderate tricuspid regurg. Possible elevated CVP. No significant interval change compared to prior. EF 65-70% with no regional wall motion abnormalities and moderate concentric LVH Holter 05/2022: No A. fib. Underlying sinus 3484, average sinus bradycardia at 56 bpm with appropriate chronotropic response and rare premature supraventricular beats. EKG: No acute ST segment changes, sinus bradycardia, QTC 397 Admitting hs-trop Aspirin held while n.p.o. and pending surgical eval, no history of stents. Resume once tolerating p.o. Takes a baby aspirin every other day at baseline (5) Hyperlipidemia: Plan: HLD - Crestor once able to tolerate n.p.o. Plan DVT PPx: Pharmacoppx held pending surgical eval. +SCDs Diet: NPO Dispo: Medtele CODE: Full History of Present Illness Primary Care Provider: Yared Landin MD Hadley is a 87-year-old male with a past medical history of coronary artery disease, hyperlipidemia, bladder carcinoma who presented for mild central abdominal pain more generalized and gas pain he had gotten prior and would spread to his left upper and lower chest. No nausea/vomiting this morning. Was treated for recent UTI and has a history of bladder cancer and self- catheterization. Chest pain was not relieved with nitro. CXR: Cardiomegaly with no acute cardiopulmonary abnormalities CTA: No evidence of PE. Cardiomegaly with evidence of PAH. Small pleural effusions, no airspace consolidation suspicious for pneumonia. Upper abdominal ascites. Right apical 6 mm lung nodule new compared to 2011 which will require follow-up CT CTA/P: Small bowel obstruction 2/2 incarceration of distal/terminal ileum with right ventral pelvic speedily and hernia. No thick-walled bowel loops identified, no pneumatosis. Interval fluid and small volume of ascites suspected reactive. Evidence of chronic outlet obstruction. T bili 1.1, no transaminitis, creatinine is with normal baseline and admitting creatinine 1.04. Mild leukocytosis Series of UTI infections. Improves with abx but has had failure due to resistance in the past. Thinks he has a UTI infection at this time. Notes his heart rate is more erratic k[place]on he as UTI. Wants to talk to Dr. Barraza. no fevers or chills. +Nausea. Over the last 2 to three weeks has had increased dysuria. Was in [facility] 7 days ago and was diagnosed with a UTI but did not hae culture results. resolved with 7 days of cefpodoxime. Cannot take ciprofloxacin 2/2 muscle aches, afib induction. Hx of MONCADA to LAD. takes one half baby aspirin daily. No history of cardiac stents. 'Thin blood, bruises easily' no hx of blood transfusion Pain 'very low level is my abdomen, hard to call it pain as its only a 1-2 but is in the stomach' Denies chest pain. Minimal flatus, greatly decreased. did have a large BM this moning, alrge and brown without blood. 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, rare social alcohol, no rec drugs of medical marijuana Code Status: Allergies Allergy/AdvReac Type Severity Reaction Status Date / Time ciprofloxacin Allergy Severe tendon pain Verified 06/14/22 14:31 erythromycin base AdvReac Intermediate A FIB Verified 06/14/22 14:31 Pohxrkh-AYA-VgO Reductase AdvReac Mild MUSCLE PAIN Verified 06/14/22 14:31 Inhibitor [Qnstrzq-Qca-Chn Reductase Inhibitor] prednisone AdvReac Unknown Unknown Verified 06/14/22 14:31 DUST MITES AdvReac Intermediate CONGESTION Uncoded 06/14/22 14:31 Home Medications Medication Instructions Recorded Confirmed Type aspirin 81 mg tablet,delayed 81 mg PO Q2D 12/04/18 06/14/22 History release (Aspir-Low) brimonidine 0.15 % eye drops 1 drp OPB BID 12/04/18 06/14/22 History (Alphagan P) coQ10 (ubiquinol) 100 mg capsule 100 mg PO QAM 12/04/18 06/14/22 History dorzolamide 22.3 mg-timolol 6.8 1 drp OPB BID 12/04/18 06/14/22 History mg/mL eye drops (Cosopt) finasteride 5 mg tablet (Proscar) 5 mg PO QAM 12/04/18 06/14/22 History latanoprost 0.005 % eye drops 1 drp OPB HS 12/04/18 06/14/22 History (Xalatan) rosuvastatin 5 mg tablet (Crestor) 5 mg PO HS 12/04/18 06/14/22 History tamsulosin 0.4 mg capsule (Flomax) 0.8 mg PO HS 12/04/18 06/14/22 History nitroglycerin 0.4 mg sublingual 0.4 mg sublingual Q5M PRN Chest 06/23/19 06/14/22 History tablet Pain #1 tab cholecalciferol (vitamin D3) 25 2,000 unit PO QAM 05/19/21 06/14/22 History mcg (1,000 unit) tablet (Vitamin D3) ketoconazole 2 % shampoo 1 applic topical .COMPLEX #120 mL 06/14/22 06/14/22 Rx Past Med/Surg History Medical History (Updated 10/26/22 @ 12:24 by Terence Shook MD) Atrial fibrillation 2007 AFTER BEING TX FOR PNX (TOOK ERYTHROMYCIN) NO PROBLEMS SINCE BPH (benign prostatic hyperplasia) CAD (coronary artery disease) Cancer SCC SKIN CANCER BLADDER CANCER (SCRAPED OFF) Cystic kidney disease Diverticular disease GERD (gastroesophageal reflux disease) Glaucoma History of SCC (squamous cell carcinoma) of skin Hyperlipidemia ON MEDICATION Lesion of pancreas BEING MONITORED [place], acute, non ST segment elevation (08/06/13) Moderate aortic stenosis Myocardial Infarction [address] CATH BID Surgical History H/O eye surgery RT EYE FOR GLAUCOMA History of adenoidectomy History of appendectomy History of cardiac cath "A COUPLE OF CATH'S" (LAST ONE 2012) NO STENTS History of cholecystectomy History of colonoscopy History of coronary artery bypass graft 2 VESSELS 2007 History of cystoscopy History of hernia repair History of tonsillectomy History of tooth extraction Family History Sister Family hx of colon cancer Melanoma Breast cancer Mother Coronary heart disease Social History Smoking Status: Former smoker Tobacco Type: Cigarettes Second Hand Exposure: No; Hx Alcohol Use: Yes Alcohol type: beer, wine and hard liquor Hx Substance Use: No Preferred Language: Divehi Communication Ability: Effective Patient Resource Coordinator Required: No Beliefs That Will Affect Care: None Current Living Situation: Spouse Feels Safe at Home: Yes Assistive Devices: Glasses Review of Systems Review of Systems: All systems reviewed & are unremarkable except as noted in HPI & below Physical Exam Physical Exam: General: A&Ox3. NAD. Cooperative. HEENT: Atraumatic, normocephalic. Pulm: CTAB A&P. -wheezes, -rales, -rhonchi. Symmetrical chest rise. No increased work of breathing. No respiratory distress. Cardiac: RRR, rates ranging 30s-60s with chronotropic response on monitor, +sm. Radial pulses intact and symmetrical. -JVD Abdominal: RLQ abdomen with nontender-nonreducible hernia Ext: warm, dry, no edema Results & Data Results & Data ([facility]) Vital Signs (Past 12 Hours) Vital Signs Temp Pulse Pulse Resp BP BP Pulse Ox 10/26/22 10:05 180/68 H 10/26/22 10:05 46 L 17 96 10/26/22 10:03 96 10/26/22 09:30 47 L 19 96 10/26/22 09:30 168/66 H 10/26/22 09:15 163/67 H 10/26/22 09:15 44 L 19 96 10/26/22 09:00 41 L 18 95 10/26/22 09:00 144/71 H 10/26/22 08:45 153/67 H 10/26/22 08:45 42 L 20 95 10/26/22 08:30 42 L 19 94 10/26/22 08:30 152/67 H 10/26/22 08:15 154/69 H 10/26/22 08:15 45 L 19 96 10/26/22 08:00 46 L 13 95 10/26/22 08:00 143/74 H 10/26/22 07:58 51 L 16 95 10/26/22 08:18 55 L 16 110/65 97 10/26/22 07:44 36.2 C L 74 20 136/75 95 O2 Del Method 10/26/22 10:05 10/26/22 10:05 10/26/22 10:03 10/26/22 09:30 10/26/22 09:30 10/26/22 09:15 10/26/22 09:15 10/26/22 09:00 10/26/22 09:00 10/26/22 08:45 10/26/22 08:45 10/26/22 08:30 10/26/22 08:30 10/26/22 08:15 10/26/22 08:15 10/26/22 08:00 10/26/22 08:00 10/26/22 07:58 10/26/22 08:18 Room Air 10/26/22 07:44 Room Air PG Care Time/CCT Total # of Minutes Spent Total Time Spent with Patient: Total time spent is greater than 50% in coordination of care (as documented) at patient's floor/unit and/or counseling patient: Coding Level of Care Code 95096 INT INP/OBS CARE 2/55MIN Diagnoses Small bowel obstruction K56.609 Urinary tract infection N39.0 Bradycardia, sinus R00.1 CAD (coronary artery disease) I25.10 Hyperlipidemia E78.5
[2022-10-26] MEDS ORDERED: cefTRIAXone SODIUM 2,000 MG/70 ML BAG IV STA (13:24)
--- NOTE | 2022-10-26 14:16 | Electrocardiogram Report ---
Test Reason : Blood Pressure : / mmHG Vent. Rate : 044 BPM Atrial Rate : 044 BPM P-R Int : 192 ms QRS Dur : 128 ms QT Int : 460 ms P-R-T Axes : 013 -67 088 degrees QTc Int : 393 ms Marked sinus bradycardia Left axis deviation Left ventricular hypertrophy with QRS widening and repolarization abnormality Abnormal ECG When compared with ECG of 12-NOV-2019 18:35, No significant change was found Confirmed by Noel Gupta ([id number]) on 10/26/2022 2:16:17 PM Referred By: REFERRED SELF Confirmed By:Noel Gupta
--- NOTE | 2022-10-26 14:23 | Electrocardiogram Report ---
Test Reason : Blood Pressure : / mmHG Vent. Rate : 046 BPM Atrial Rate : 046 BPM P-R Int : 206 ms QRS Dur : 130 ms QT Int : 454 ms P-R-T Axes : 046 -68 093 degrees QTc Int : 397 ms Sinus bradycardia Left anterior fascicular block Left ventricular hypertrophy with repolarization abnormality with QRS widening Cannot rule out Septal infarct , age undetermined Abnormal ECG When compared with ECG of 26-OCT-2022 07:52, (unconfirmed) Minimal criteria for Septal infarct are now Present Confirmed by Noel Gupta ([id number]) on 10/26/2022 2:23:22 PM Referred By: REFERRED SELF Confirmed By:Noel Gupta
--- NOTE | 2022-10-26 15:15 | Surgery Consultation ---
Date of Consultation October 26, 2022 Assessment & Plan (1) Spigelian hernia: pt is a 87 year-old male who presents to [facility] with chest, pt had CT scan finding- IMPRESSION: 1. 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, I indicated the risks may include but not limit, such as infection, bleeding, hernia recurrence, injury other organs, MY, complications relate to mesh, , pt and his understood, they agreed with surgery, his signed informed consent, I answered all questions, pre-op iv antibiotic, History of Present Illness Reason for Consultation: spigelian hernia Requesting Physician: Terence Shook, History of Present Illness History of Present Illness Primary Care Provider: Yared Landin MD CC: Chest pain Hadley is a 87-year-old male with a past medical history of coronary artery disease, hyperlipidemia, bladder carcinoma who presented for mild central abdominal pain more generalized and gas pain he had gotten prior and would spread to his left upper and lower chest. No nausea/vomiting this morning. Was treated for recent UTI and has a history of bladder cancer and self- catheterization. Chest pain was not relieved with nitro. CXR: Cardiomegaly with no acute cardiopulmonary abnormalities CTA: No evidence of PE. Cardiomegaly with evidence of PAH. Small pleural effusions, no airspace consolidation suspicious for pneumonia. Upper abdominal ascites. Right apical 6 mm lung nodule new compared to 2012 which will require follow-up CT CTA/P: Small bowel obstruction 2/2 incarceration of distal/terminal ileum with right ventral pelvic speedily and hernia. No thick-walled bowel loops identified, no pneumatosis. Interval fluid and small volume of ascites suspected reactive. Evidence of chronic outlet obstruction. T bili 1.1, no transaminitis, creatinine is with normal baseline and admitting creatinine 1.04. Mild leukocytosis Series of UTI infections. Improves with abx but has had failure due to resistance in the past. Thinks he has a UTI infection at this time. Notes his heart rate is more erratic [place] he as UTI. Wants to talk to Dr. Barraza. no fevers or chills. +Nausea. Over the last 2 to three weeks has had increased dysuria. Was in [facility] 7 days ago and was diagnosed with a UTI but did not hae culture results. resolved with 7 days of cefpodoxime. Cannot take ciprofloxacin 2/2 muscle aches, afib induction. Hx of MONCADA to LAD. takes one half baby aspirin daily. No history of cardiac stents. 'Thin blood, bruises easily' no hx of blood transfusion Pain 'very low level is my abdomen, hard to call it pain as its only a 1-2 but is in the stomach' Denies chest pain. Minimal flatus, greatly decreased. did have a large BM this morning, large and brown without blood. 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, rare social alcohol, no rec drugs of medical marijuana Code Status: Allergies Allergy/AdvReac Type Severity Reaction Status Date / Time ciprofloxacin Allergy Severe tendon pain Verified 06/14/22 14:31 erythromycin base AdvReac Intermediate A FIB Verified 06/14/22 14:31 Tcyhwfv-[id number]-AtU Reductase AdvReac Mild MUSCLE PAIN Verified 06/14/22 14:31 Inhibitor [Cirzsvy-Mmb-Euu Reductase Inhibitor] prednisone AdvReac Unknown Unknown Verified 06/14/22 14:31 DUST MITES AdvReac Intermediate CONGESTION Uncoded 06/14/22 14:31 Home Medications Medication Instructions Recorded Confirmed Type aspirin 81 mg tablet,delayed 81 mg PO Q2D 12/04/18 06/14/22 Hi story release (Aspir-Low) brimonidine 0.15 % eye drops 1 drp OPB BID 12/04/18 06/14/22 Hi story (Alphagan P) coQ10 (ubiquinol) 100 mg capsule 100 mg PO QAM 12/04/18 2 History dorzolamide 22.3 mg-timolol 6.8 1 drp OPB BID 12/04/18 06/14/22 History mg/mL eye drops (Cosopt) finasteride 5 mg tablet (Proscar) 5 mg PO QAM 12/04/18 History latanoprost 0.005 % eye drops 1 drp OPB HS 12/04/18 06/14/22 H istory (Xalatan) rosuvastatin 5 mg tablet (Crestor) 5 mg PO HS 12/04/1806/14 History tamsulosin 0.4 mg capsule (Flomax) 0.8 mg PO HS 12/04/1806/14 History nitroglycerin 0.4 mg sublingual 0.4 mg sublingual Q5M PRN Chest 06/23/19 06/14/22 History tablet Pain #1 tab cholecalciferol (vitamin D3) 25 2,000 unit PO QAM 05/19/21 06/14/22 History mcg (1,000 unit) tablet (Vitamin D3) ketoconazole 2 % shampoo 1 applic topical .COMPLEX #120 mL 06/14/22 0 06/14/22 Rx Past Med/Surg History Medical History(Updated 10/26/22 @ 12:24 by Terence Shook MD) Atrial fibrillation 2007 AFTER BEING TX FOR PNX (TOOK ERYTHROMYCIN) NO PROBLEMS SINCEBPH (benign prostatic hyperplasia) CAD (coronary artery disease) Cancer SCC SKIN CANCER BLADDER CANCER (SCRAPED OFF)Cystic kidney disease Diverticular disease GERD (gastroesophageal reflux disease) Glaucoma History of SCC (squamous cell carcinoma) of skin Hyperlipidemia ON MEDICATIONLesion of pancreas BEING MONITOREDMI, acute, non ST segment elevation (08/06/13) Moderate aortic stenosis Myocardial Infarction 2013Urinary retention ST CATH BID Surgical History H/O eye surgery RT EYE FOR GLAUCOMAHistory of adenoidectomy History of appendectomy History of cardiac cath "A COUPLE OF CATH'S" (LAST ONE 2012) NO STENTSHistory of cholecystectomy History of colonoscopy History of coronary artery bypass graft 2 VESSELS 2007History of cystoscopy History of hernia repair History of tonsillectomy History of tooth extraction Family History Sister Family hx of colon cancer Melanoma Breast cancerMother Coronary heart disease Social History Smoking Status: Former smoker Tobacco Type: Cigarettes Second Hand Exposure: No; Hx Alcohol Use: Yes Alcohol type: beer, wine and hard liquor Hx Substance Use: No Preferred Language: Cook Islander Communication Ability: Effective Software Development Analyst Required: No Beliefs That Will Affect Care: None Current Living Situation: Spouse Feels Safe at Home: Yes Assistive Devices: Glasses Review of Systems Review of Systems: All systems reviewed & are unremarkable except as noted in HPI & below Allergies Allergy/AdvReac Type Severity Reaction Status Date / Time ciprofloxacin Allergy Severe tendon pain Verified 06/14/22 14:31 erythromycin base AdvReac Intermediate A FIB Verified 06/14/22 14:31 Twmrlmn-DTF-RiJ Reductase AdvReac Mild MUSCLE PAIN Verified 06/14/22 14:31 Inhibitor [Xzoyrfo-Poa-Vrc Reductase Inhibitor] prednisone AdvReac Unknown Unknown Verified 06/14/22 14:31 Home Medications Medication Instructions Recorded Confirmed Type brimonidine 0.15 % eye drops 1 drp OPB BID 12/04/18 10/26/22 History (Alphagan P) coQ10 (ubiquinol) 100 mg capsule 100 mg PO QAM 12/04/18 10/26/22 History dorzolamide 22.3 mg-timolol 6.8 1 drp OPB BID 12/04/18 10/26/22 History mg/mL eye drops (Cosopt) finasteride 5 mg tablet (Proscar) 5 mg PO QAM 12/04/18 10/26/22 History latanoprost 0.005 % eye drops 1 drp OPB HS 12/04/18 10/26/22 History (Xalatan) rosuvastatin 5 mg tablet (Crestor) 5 mg PO HS 12/04/18 10/26/22 History tamsulosin 0.4 mg capsule (Flomax) 0.8 mg PO HS 12/04/18 10/26/22 History nitroglycerin 0.4 mg sublingual 0.4 mg sublingual Q5M PRN Chest 06/23/19 10/26/22 History tablet Pain #1 tab cholecalciferol (vitamin D3) 25 2,000 unit PO QAM 05/19/21 10/26/22 History mcg (1,000 unit) tablet (Vitamin D3) ketoconazole 2 % shampoo 1 applic topical .COMPLEX #120 mL 06/14/22 10/26/22 Rx aspirin 81 mg tablet,delayed 81 mg PO DAILY 10/26/22 10/26/22 History release Patient History Medical History (Updated 10/26/22 @ 14:58 by Rl Julien MD) Atrial fibrillation 2007 AFTER BEING TX FOR PNX (TOOK ERYTHROMYCIN) NO PROBLEMS SINCE BPH (benign prostatic hyperplasia) CAD (coronary artery disease) Cancer SCC SKIN CANCER BLADDER CANCER (SCRAPED OFF) Cystic kidney disease Diverticular disease GERD (gastroesophageal reflux disease) Glaucoma History of SCC (squamous cell carcinoma) of skin Hyperlipidemia ON MEDICATION Lesion of pancreas BEING MONITORED [place], acute, non ST segment elevation (08/06/13) Moderate aortic stenosis Myocardial Infarction [address] CATH BID Surgical History H/O eye surgery RT EYE FOR GLAUCOMA History of adenoidectomy History of appendectomy History of cardiac cath "A COUPLE OF CATH'S" (LAST ONE 2012) NO STENTS History of cholecystectomy History of colonoscopy History of coronary artery bypass graft 2 VESSELS 2007 History of cystoscopy History of hernia repair History of tonsillectomy History of tooth extraction Family History Sister Family hx of colon cancer Melanoma Breast cancer Mother Coronary heart disease Social History Smoking Status: Former smoker Tobacco Type: Cigarettes Second Hand Exposure: No; Hx Alcohol Use: Yes Alcohol type: beer, wine and hard liquor Hx Substance Use: No Preferred Language: [place] Islander Communication Ability: Effective Software Development Analyst Required: No Beliefs That Will Affect Care: None Current Living Situation: Spouse Feels Safe at Home: Yes Assistive Devices: Glasses Review of Systems Constitutional: as per Subjective / HPI Eyes: as per Subjective / HPI Respiratory: as per Subjective / HPI Cardiovascular: Additional Comments: chest pain, CADbradycardia Gastrointestinal: as per Subjective / HPI Genitourinary: + as per Subjective / HPI (bladder cancer) Neurologic: as per Subjective / HPI Psychiatric: as per Subjective / HPI Endocrine: as per Subjective / HPI Hematologic / Lymphatic: as per Subjective / HPI Physical Exam Constitutional: WD/WN, vitals as above Eyes: PERRL, conjunctivae normal, anicteric sclerae Neck: trachea midline, no thyromegaly Respiratory: normal respiratory effort, lungs clear to auscultation Cardiovascular: RRR, no murmur, no edema Gastrointestinal (Abdomen): soft palpable mass on RLQ, not reducible, no tenderness, no redness, BS +, Musculoskeletal: no cyanosis or clubbing, extremities motor strength 5/5 Neurologic: patellar DTR's 2+ bilat, sensation intact Psychiatric: A+Ox3, euthymic affect Results & Data ([facility]) Vital Signs (Past 12 Hours) Vital Signs Temp Pulse Pulse Resp BP BP Pulse Ox 10/26/22 12:30 65 16 96 10/26/22 12:30 148/78 H 10/26/22 12:00 56 L 20 96 10/26/22 12:00 149/72 H 10/26/22 11:30 53 L 14 95 10/26/22 11:30 158/69 H 10/26/22 11:15 167/69 H 10/26/22 11:15 54 L 18 95 10/26/22 11:00 42 L 20 96 10/26/22 11:00 161/73 H 10/26/22 10:30 41 L 18 97 10/26/22 10:30 180/69 H 10/26/22 10:15 40 L 22 96 10/26/22 10:15 165/70 H 10/26/22 10:05 180/68 H 10/26/22 10:05 46 L 17 96 10/26/22 10:03 96 10/26/22 09:30 47 L 19 96 10/26/22 09:30 168/66 H 10/26/22 09:15 163/67 H 10/26/22 09:15 44 L 19 96 10/26/22 09:00 41 L 18 95 10/26/22 09:00 144/71 H 10/26/22 08:45 153/67 H 10/26/22 08:45 42 L 20 95 10/26/22 08:30 42 L 19 94 10/26/22 08:30 152/67 H 10/26/22 08:15 154/69 H 10/26/22 08:15 45 L 19 96 10/26/22 08:00 46 L 13 95 10/26/22 08:00 143/74 H 10/26/22 07:58 51 L 16 95 10/26/22 08:18 55 L 16 110/65 97 10/26/22 07:44 36.2 C L 74 20 136/75 95 O2 Del Method 10/26/22 12:30 10/26/22 12:30 10/26/22 12:00 10/26/22 12:00 10/26/22 11:30 10/26/22 11:30 10/26/22 11:15 10/26/22 11:15 10/26/22 11:00 10/26/22 11:00 10/26/22 10:30 10/26/22 10:30 10/26/22 10:15 10/26/22 10:15 10/26/22 10:05 10/26/22 10:05 10/26/22 10:03 10/26/22 09:30 10/26/22 09:30 10/26/22 09:15 10/26/22 09:15 10/26/22 09:00 10/26/22 09:00 10/26/22 08:45 10/26/22 08:45 10/26/22 08:30 10/26/22 08:30 10/26/22 08:15 10/26/22 08:15 10/26/22 08:00 10/26/22 08:00 10/26/22 07:58 10/26/22 08:18 Room Air 10/26/22 07:44 Room Air Laboratory Results Abnormal lab results 10/26/22 10/26/22 10/26/22 Range/Units 07:59 07:59 Unknown WBC 13.58 H (4.8-10.8) K/ul RBC 4.47 L (4.70-6.10) M/uL Hct 41.9 L (42.0-52.0) % Neut # (Auto) 11.36 H (1.40-6.50) K/uL Lymph # (Auto) 0.73 L (1.2-3.4) K/uL [place] # (Auto) 1.12 H (0.11-0.59) K/uL BUN/Creatinine Ratio 21.2 H (10-20) Glucose 136 H (70-99(Fasting)) mg/dl Calcium 10.3 H (8.5-10.1) mg/dl Total Bilirubin 1.1 H (0.2-1.0) mg/dl AST 12 L (13-39) U/L Urine Appearance Turbid A (Clear) Urine Protein 1+ H (Negative) Urine Blood 2+ H (Negative) Ur Leukocyte Esterase 3+ H (Negative) Urine WBC (Auto) >30 H (0-5) /hpf Urine RBC (Auto) 5-10 H (0-4) /hpf U Epithel Cells (Auto) >30 H (0-5) /lpf Urine Bacteria (Auto) 4+ H (Negative) Diagnostic Findings CT SCAN OF THE ABDOMEN AND PELVIS WITH IV CONTRAST CLINICAL HISTORY: Generalized abdominal pain. COMPARISON STUDY: Abdominal CT dated 06/19/2018. TECHNIQUE: Following the IV administration of 112 cc of Optiray 320, CT scan of the abdomen and pelvis is performed from the lung bases to the proximal femora. Images are reviewed in the axial, sagittal, and coronal planes. IV contrast was administered without complication. A dose lowering technique was utilized adhering to the principles of ALARA. FINDINGS: Lung bases: The heart is enlarged and without pericardial effusion. The coronary arteries and aortic valve leaflets are densely calcified. There are small pleural effusions with dependent atelectasis. Foci of parenchymal scarring are noted at both lung bases. There is a small hiatal hernia. Liver: The contrast-enhanced liver is normal in size, contour, and attenuation. There is no intrahepatic biliary ductal dilatation. The hepatic veins and portal veins are patent. Gallbladder: Surgically absent and clips in the gallbladder fossa. Spleen: Normal in size and attenuation. Pancreas: A 1.8 cm simple cystic lesion in the pancreatic head seen on image #171 is unchanged from previous pelvis likely represents an IPMN versus mucinous cystic neoplasm. The pancreatic duct is normal in caliber. The gland is mildly atrophic and otherwise grossly unremarkable. Adrenal glands: Unremarkable. Kidneys: The contrast enhanced kidneys demonstrate mild cortical atrophy and are without hydronephrosis. The kidneys enhance symmetrically. Simple and complex bilateral renal cysts measure up to 4 cm. These were also seen previously. Abdominal vasculature: There is advanced atherosclerotic calcification and ectasia of the abdominal aorta. Bowel: There are bilateral spigelian hernias in the ventral pelvis which contain ascitic fluid. The spigelian hernia on the right also contains the distal/terminal ileum. This is best seen on axial image #334. This hernia is incarcerated and causes upstream small bowel obstruction. The distal ileum is distended and fecalized, with loops measuring up to 3.3 cm diameter. There is interloop fluid. No focally thick-walled bowel loops identified. There is no pneumatosis intestinalis or portal venous gas. The colon is decompressed. The appendix is not visualized. There are scattered colonic diverticula without CT evidence of acute diverticulitis. Peritoneum: No depression of free air is seen. There is a small volume of abdominopelvic ascites. Lymphadenopathy: None. Pelvic viscera: The prostate gland is markedly enlarged and heterogeneous noting median lobe hypertrophy. The bladder is markedly distended. The wall is thickened/trabeculated indicating chronic outlet obstruction. There are small bilateral inguinal hernias. The hernia on the left contains fluid. Skeletal structures: The skeletal structures are osteopenic. There is moderate lumbosacral spondylosis. No lytic or blastic lesions are seen. IMPRESSION: 1. 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 2. No focally thick-walled bowel loops identified. There is no intraperitoneal free air, pneumatosis intestinalis, or portal venous gas. 3. There is interval fluid and a small volume of abdominopelvic ascites. 4. Cardiomegaly and small pleural effusions. 5. Marked bladder distention with prostatomegaly and evidence of chronic outlet obstruction. 6. Additional findings as above.
[2022-10-26] MEDS ORDERED: ACETAMINOPHEN 325 MG TAB PO PRN (15:24)
[2022-10-26] MEDS ORDERED: NITROGLYCERIN SL 0.4 MG/TAB TAB SL PRN (15:24)
[2022-10-26] MEDS ORDERED: PANTOprazole 40 MG in SYRINGE 0 ML IV SCH (15:24)
[2022-10-26] MEDS ORDERED: NORMOSOL-R 1,000 ML IV SCH (15:30)
--- NOTE | 2022-10-26 16:17 | History & Physical Bridge Note ---
Date of Service October 26, 2022 History & Physical Bridge Note I have examined the patient, reviewed the History & Physical and in the interval since the performance of the History & Physical I have noted the following changes of clinical significance: no changes noted
[2022-10-26] MEDS ORDERED: PIPERACILLIN/TAZOBACTAM 3.375 GM in DEXTROSE 5% 100 ML IV ONE (16:30)
[2022-10-27] MEDS ORDERED: cefTRIAXone SODIUM 2,000 MG in DEXTROSE 5% 50 ML IV SCH (14:00)
--- NOTE | 2022-10-27 14:16 | Discharge Summary ---
Date of Service October 26, 2022 Admission HPI Per Admitting Provider Hadely is a 87-year-old male with a past medical history of coronary artery disease, hyperlipidemia, bladder carcinoma who presented for mild central abdominal pain more generalized and gas pain he had gotten prior and would spread to his left upper and lower chest. No nausea/vomiting this morning. Was treated for recent UTI and has a history of bladder cancer and self- catheterization. Chest pain was not relieved with nitro. CXR: Cardiomegaly with no acute cardiopulmonary abnormalities CTA: No evidence of PE. Cardiomegaly with evidence of PAH. Small pleural effusions, no airspace consolidation suspicious for pneumonia. Upper abdominal ascites. Right apical 6 mm lung nodule new compared to 2012 which will require follow-up CT CTA/P: Small bowel obstruction 2/2 incarceration of distal/terminal ileum with right ventral pelvic speedily and hernia. No thick-walled bowel loops identified, no pneumatosis. Interval fluid and small volume of ascites suspected reactive. Evidence of chronic outlet obstruction. T bili 1.1, no transaminitis, creatinine is with normal baseline and admitting creatinine 1.04. Mild leukocytosis Series of UTI infections. Improves with abx but has had failure due to resi stance in the past. Thinks he has a UTI infection at this time. Notes his heart rate is more erratic [place] he as UTI. Wants to talk to Dr. Barraza. no fevers or chills. +Nausea. Over the last 2 to three weeks has had increased dysuria. Was in [facility] 7 days ago and was diagnosed with a UTI but did not hae culture results. resolved with 7 days of cefpodoxime. Cannot take ciprofloxacin 2/2 muscle aches, afib induction. Hx of MONCADA to LAD. takes one half baby aspirin daily. No history of cardiac stents. 'Thin blood, bruises easily' no hx of blood transfusion Pain 'very low level is my abdomen, hard to call it pain as its only a 1-2 but is in the stomach' Denies chest pain. Minimal flatus, greatly decreased. did have a large BM this moning, alrge and brown without blood. 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, rare social alcohol, no rec drugs of medical marijuana Code Status: Principal Diagnosis Incarcerated hernia, UTI Discharge Exam AMA discharge prior to exam Discharge Data Allergies Allergy/AdvReac Type Severity Reaction Status Date / Time ciprofloxacin Allergy Severe tendon pain Verified 06/14/22 14:31 erythromycin base AdvReac Intermediate A FIB Verified 06/14/22 14:31 Ccelear-DNA-YcG Reductase AdvReac Mild MUSCLE PAIN Verified 06/14/22 14:31 Inhibitor [Jmhlxpi-Qwz-Voo Reductase Inhibitor] prednisone AdvReac Unknown Unknown Verified 06/14/22 14:31 Consultations 10/26/22 12:06 ED Decision to Admit Stat 10/26/22 15:24 Consult General Surgery Routine Procedures Performed Operation Date: 10/26/22 15:35 <No data on this case meets the specified criteria> Ordered Studies 10/26/22 08:05 CT Abd and Pelvis [CT abd pelvis IV con only] Stat 10/26/22 08:06 CT angio chest PE protocol Stat Hospital Course (1) Small bowel obstruction: AMA discharge Following admission patient did discuss surgical consultation with general surgery and did not wish to pursue any correction of his incarcerated hernia. Open repair of right speculating hernia with possible mesh was recommended by surgical team, patient expressed an understanding that he could develop ischemic bowel which could lead to serious morbidity or . Patient expressed understanding of this, wished to defer surgery. Prior to reevaluation by hospitalist provider patient did leave AMA. Patient had been treated with 1 dose of Rocephin for suspected UTI with infected appearing UA. Discharge was not endorsed nor recommended by hospitalist provider; however to reduce the risk of worsening illness and morbidity in the setting of untreated infection a prescription for cefdinir was sent to patient's pharmacy to cover for UTI, prior urine cultures had been sensitive to third-generation cephalosporins and kidney function on ER evaluation was normal. Patient was aware of pharmacy prescription, that this was not an endorsement of discharge, that it is recommended he return to but especially important should any worsening infectious or abdominal symptoms develop SBO 2/2 Incarcerated hernia - Surgery - CT-A/P: 1. 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 2. No focally thick-walled bowel loops identified. There is no intraperitoneal free air, pneumatosis intestinalis, or portal venous gas. 3. There is interval fluid and a small volume of abdominopelvic ascites. 4. Cardiomegaly and small pleural effusions. 5. Marked bladder distention with prostatomegaly and evidence of chronic outlet obstruction. 6. Additional findings as above. Patient did have a large brown bowel movement this morning, has had no bleeding and has had reduced but is still passing flatus. Unclear chronicity, hernia is incarcerated but not strangulated. Surgery consulted and will follow, patient prefers conservative management which is reasonable at this time N.p.o. IV FM 80 cc/h while n.p.o., no overt fluid overload (2) Urinary tract infection: UTI, hx LUTS - Continue proscar - Cath PRN - Flomax continued - UA infected appearing, UC pending. +Rocephin (3) Bradycardia, sinus: Chronic Bradycardia -Holter 05/2022 with sinus bradycardia and appropriate chronotropic response Hemodynamically stable on admission We will continue on telemetry, no indication for pacing/atropine at this time On provider reassessment heart rate is normal in the 60s. Patient very concerned about heart rate decreasing to 30s/40s, although does note that he has not had symptoms/lightheadedness/syncope events blood pressure has been stable with this. 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 Barraza, who they have left a call for at the office (4) CAD (coronary artery disease): CAD s/p CABG, no stents. Hx MONCADA --> LAD >10 yrs ago No exertional chest pain, has had gradually decreasing stamina at prior follow-ups Last echo:06/14/2022: Normal biventricular systolic function. Mild LAD. Mild aortic stenosis. Mild to stacey regurg. Mild to moderate tricuspid regurg. Possible elevated CVP. No significant interval change compared to prior. EF 65-70% with no regional wall motion abnormalities and moderate concentric LVH Holter 05/2022: No A. fib. Underlying sinus 3484, average sinus bradycardia at 56 bpm with appropriate chronotropic response and rare premature supraventricular beats. EKG: No acute ST segment changes, sinus bradycardia, QTC 397 Admitting hs-trop Aspirin held while n.p.o. and pending surgical eval, no history of stents. Resume once tolerating p.o. Takes a baby aspirin every other day at baseline (5) Hyperlipidemia: HLD - Crestor once able to tolerate n.p.o. Plan DVT PPx: Pharmacoppx held pending surgical eval. +SCDs Diet: NPO Dispo: Medtele CODE: Full Total Time Total Time Spent Total Time Spent (In Minutes): Incarcerated spigelian hernia, UTI Discharge Plan Discharge Items Patient Disposition: Against Medical Advice Reason For Visit: SBO 2/2 INCARCERATED HERNIA Activity: Per Instructions section Non-emergency contact: Primary Care Provider Medications and DC Order Prescriptions: New cefdinir 300 mg capsule 300 mg PO BID 5 Days Qty: 10 0RF No Action nitroglycerin 0.4 mg tablet, sublingual 0.4 mg SL Q5M PRN (Reason: Chest Pain) Qty: 1 Rx Instructions: NEEDED FOR CHEST PAIN : ONE TABLET UNDER THE TONGUE EVERY 5 MINUTES UP TO 3 DOSES. ketoconazole 2 % shampoo 1 applic topical .COMPLEX Qty: 120 2RF Rx Instructions: Wash scalp, face and chest 2-3 times weekly. Let sit for 3-5 minutes prior to rinsing.; latanoprost [Xalatan] 0.005 % Drops 1 drp OPB HS tamsulosin [Flomax] 0.4 mg Capsule 0.8 mg PO HS Rx Instructions: TWO CAPSULE DOSE dorzolamide-timolol [Cosopt] 22.3-6.8 mg/mL Drops 1 drp OPB BID finasteride [Proscar] 5 mg Tablet 5 mg PO QAM brimonidine [Alphagan P] 0.15 % Drops 1 drp OPB BID rosuvastatin [Crestor] 5 mg Tablet 5 mg PO HS coQ10 (ubiquinol) 100 mg Capsule 100 mg PO QAM cholecalciferol (vitamin D3) [Vitamin D3] 25 mcg (1,000 unit) tablet 2,000 unit PO QAM aspirin [Aspirin Low-Strength] 81 mg Tablet,Delayed Release (Dr/Ec) 81 mg PO DAILY Admission Data Admit Date/Time: 10/26/22 12:16 Attending Provider: Terence Shook Admit Provider: Terence Shook Primary Care Provider: Yared Landin Other Providers: Terence Shook ; Valentín Avenadno Coding Level of Care Code None Diagnoses Small bowel obstruction K56.609 Urinary tract infection N39.0 Bradycardia, sinus R00.1 CAD (coronary artery disease) I25.10 Hyperlipidemia E78.5
== END 2022-10-26 17:00 | disposition left against medical advice (07) | DRG 394 ==
LOC: ED 07:41 → EDINP 12:16